=== PATIENT | female | born 1960 ===

== ENCOUNTER 2020-12-09 16:19 | Inpatient (IN) | payer OTHER ==
[~2020-12-09] VITALS: Ht 157.5 cm; Wt 72.0 kg
--- NOTE | 2020-12-09 17:47 | PHYS DOC ---
Past Medical History Past Surgical History: Oophorectomy, Tonsillectomy, Other Additional Past Surgical Histo: hemorrhoid Smoking Status: Current Every Day Smoker Alcohol Use: None General Adult EDM: Chief Complaint: LOWER EXTREMITY SWELLING HPI: HPI: Patient is a 60-year-old female presents to the emergency department reporting h er primary care physician Dr. Michael recommended she come straight to the emergency department from his office. Patient has complained of increased shortness of breath and cough for the past 3 weeks noticing bilateral lower extremity swelling for the past 2-1/2 weeks. Patient reports being a cigarette smoker since she was 15 years old, occasional alcohol, denies illicit drug use, patient denies chest pain, nausea, vomiting, diarrhea, diaphoretic episodes, dizziness, syncopal or near syncopal episodes. Patient reports receiving the COVID-19 virus vaccine series. Patient denies other physical complaints or physical concerns. Review of Systems: Review of Systems: 14 body systems of review of systems have been reviewed. See HPI for pertinent positives and negative responses, otherwise all other systems are negative, nonpertinent or noncontributory. Constitutional: Negative except as outlined in HPI above. Skin: Negative except as outlined in HPI above. Eyes: Negative except as outlined in HPI above. HENT: Negative except as outlined in HPI above. Respiratory: Negative except as outlined in HPI above. Cardiovascular: Negative except as outlined in HPI above. GI: Negative except as outlined in HPI above. : Negative except as outlined in HPI above. Musculoskeletal: Negative except as outlined in HPI above. Integument: Negative except as outlined in HPI above. Neurologic: Negative except as outlined in HPI above. Endocrine: Negative except as outlined in HPI above. Lymphatic: Negative except as outlined in HPI above. Psychiatric: Negative except as outlined in HPI above. Heart Score: C/O Chest Pain: No Risk Factors: Risk Factors: DM, Current or recent (<one month) smoker, HTN, HLP, family history of CAD, obesity. Risk Scores: Score 0 - 3: 2.5% MACE over next 6 weeks - Discharge Home Score 4 - 6: 20.3% MACE over next 6 weeks - Admit for Clinical Observation Score 7 - 10: 72.7% MACE over next 6 weeks - Early Invasive Strategies Allergies: Allergies: Allergies Coded Allergies Type Severity Reaction Last Updated Verified No Known Drug Allergies 12/09/20 No Physical Exam: PE: Constitutional: Well developed, well nourished, no acute distress, non-toxic appearance. 60-year-old female in no apparent distress. HENT: Normocephalic, atraumatic. Eyes: Conjunctiva normal, no discharge. Neck: Normal range of motion, no stridor. Bilateral positive JVD. Cardiovascular: No cyanosis appreciated, distal cap refill less than 2 seconds. Rapid heart rate to auscultation, Lungs & Thorax: Patient is in no respiratory distress, no audible adventitious lung sounds appreciated. Diminished lung sounds at bases, otherwise no adventitious lung sounds consultation. Abdomen: Nontender, no abnormalities noted. Skin: Warm, dry, no erythema, no rash. Back: No tenderness, no deformities. Extremities: No tenderness, no cyanosis, no clubbing, ROM intact, bilateral lower extremity 3+ pitting edema extending from just below calf to feet, 2+ dorsalis pedis/posterior tibial pulse. Distal cap refill less than 2 seconds. Neurologic: Alert and oriented X 3, normal motor function, normal sensory function, no focal deficits noted. Psychologic: Affect normal, judgement normal, mood normal. Current Patient Data: Labs: Laboratory Tests Test 12/09/20 17:22 12/09/20 18:28 White Blood Count 6.2 x10^3/uL Red Blood Count 5.36 x10^6/uL Hemoglobin 11.4 g/dL Hematocrit 35.4 % Mean Corpuscular Volume 66 fL Mean Corpuscular Hemoglobin 21 pg Mean Corpuscular Hemoglobin Concent 32 g/dL Red Cell Distribution Width 14.8 % Platelet Count 374 x10^3/uL Neutrophils (%) (Auto) 48 % Lymphocytes (%) (Auto) 40 % Monocytes (%) (Auto) 10 % Eosinophils (%) (Auto) 1 % Basophils (%) (Auto) 1 % Neutrophils # (Auto) 3.0 x10^3/uL Lymphocytes # (Auto) 2.5 x10^3/uL Monocytes # (Auto) 0.6 x10^3/uL Eosinophils # (Auto) 0.1 x10^3/uL Basophils # (Auto) 0.0 x10^3/uL Platelet Estimate Adequate Polychromasia Slight Hypochromasia Marked Microcytosis Marked Target Cells Mod Ovalocytes Mod Sodium Level 144 mmol/L Potassium Level 3.2 mmol/L Chloride Level 105 mmol/L Carbon Dioxide Level 30 mmol/L Anion Gap 9 Blood Urea Nitrogen 15 mg/dL Creatinine 0.5 mg/dL Estimated GFR (Cockcroft-Gault) 125.4 BUN/Creatinine Ratio 30 Glucose Level 121 mg/dL Calcium Level 8.8 mg/dL Total Bilirubin 1.1 mg/dL Aspartate Amino Transf (AST/SGOT) 26 U/L Alanine Aminotransferase (ALT/SGPT) 32 U/L Alkaline Phosphatase 124 U/L Creatine Kinase 65 U/L Creatine Kinase MB (Mass) 1.2 ng/mL Creatine Kinase MB Relative Index % Troponin I Quantitative < 0.017 ng/mL C-Reactive Protein, Quantitative 6.2 mg/L VF-[id number]-T-Type Natriuretic Peptide 2600 pg/mL Total Protein 7.0 g/dL Albumin 3.5 g/dL Albumin/Globulin Ratio 1.0 Urine Collection Type Unknown Urine Color Yellow Urine Clarity Clear Urine pH 7.5 Urine Specific [place] <=1.005 Urine Protein Negative mg/dL Urine Glucose (UA) Negative mg/dL Urine Ketones (Stick) Negative mg/dL Urine Blood Negative Urine Nitrite Negative Urine Bilirubin Negative Urine Urobilinogen Dipstick 0.2 mg/dL Urine Leukocyte Esterase Trace Urine RBC 0 /HPF Urine WBC 1-4 /HPF Urine Squamous Epithelial Cells Mod /LPF Urine Amorphous Sediment Present /HPF Urine Bacteria 0 /HPF Current Medications Medications (Trade) Dose Ordered Sig/Joey Route PRN Reason Start Time Stop Time Status Last Admin Dose Admin Diltiazem HCl (Cardizem Iv Push) 10 mg 1X ONCE IVP 12/09/20 18:00 12/09/20 18:01 DC 12/09/20 18:32 Albuterol/ Ipratropium (Duoneb) 3 ml 1X ONCE NEB 12/09/20 18:00 12/09/20 18:01 DC 12/09/20 18:13 Furosemide (Lasix) 40 mg 1X ONCE IVP 12/09/20 18:45 12/09/20 18:46 DC 12/09/20 18:32 Vital Signs: Vital Signs Date Time Temp Pulse Resp B/P (MAP) Pulse Ox O2 Delivery O2 Flow Rate FiO2 12/09/20 17:10 98.9 145 18 170/85 (113) 98 Room Air 98.9 EKG: EKG: EKG performed at 1726 by ED nursing staff shows a tachycardia with left axis deviation heart rate 141 bpm, no discernible P waves appreciated, QTc interval 0.462, no STEMI appreciated, no acute ischemia, no ACS appreciated, EKG interpreted by ED attending physician Dr. Soni. Radiology/Procedures: Radiology/Procedures: PATIENT: ADALBERTO ABBOTT ACCOUNT: [id number] : 1960 LOCATION: ER AGE: 60 SEX: F EXAM STATUS: REG ER ORD. PHYSICIAN: DEVENDRA HERRERA APRN REASON: Heart palpitations PROCEDURE: CHEST AP ONLY EXAM: AP View of the chest DATE: 12/09/2020 5:44 PM INDICATION: Reason: Heart palpitations / Spl. Instructions: / History: COMPARISON: No Prior FINDINGS/ IMPRESSION: Heart is not enlarged. Aorta is tortuous. Bilateral perihilar and lung base airspace opacities likely consolidative process such as pneumonia although pulmonary edema could also have this appearance. Small right pleural effusion. No pneumothorax. Electronically signed by: Joseph Mackay MD (12/09/2020 6:00 PM) MAKI Course & Med Decision Making: Course & Med Decision Making Pertinent Labs and Imaging studies reviewed. (See chart for details) 60-year-old female, vital signs reviewed, presents emergency department concerning increased shortness of breath with lower extremity swelling for the past 3 weeks. Physical examination concerning for congestive heart failure, will order cardiorespiratory work-up. EKG tachycardic no discernible P waves unable to determine sinus versus atrial fibrillation versus other ectopy, will order 10 mg Cardizem to assist in decreasing heart rate, repeat EKG. Patient's potassium 3.2, will give 80 of potassium p.o. supplement related to giving 40 mg IV Lasix for pulmonary edema/ingestive heart failure. Discussed findings with patient, recommended admission to the hospital for cardiology consult and treatment of pulmonary edema/CHF symptoms, patient is amenable to admission. Verbally discussed patient case and ED work-up with inpatient management physician Dr. Redd who agrees patient's case warrants admission to the telemetry unit. Consult cardiology, Dr. Redd recommended 10 mg IV metoprolol to assist in reducing heart rate. Patient remains hemodynamically stable, patient's blood pressure is 170/80 at admission time, heart rate remains [address] Redd has assumed patient care at this time. Patient awaiting bed assignment from [facility] [employer]. Juvencio Disclaimer: Juvencio Disclaimer: This electronic medical record was generated, in whole or in part, using a voice recognition dictation system. Departure Departure Impression: Primary Impression: Congestive heart failure Qualified Codes: I50.9 - Heart failure, unspecified Disposition: ADMITTED INPATIENT Admitting Physician: BENITEZ (Admit to telemetry unit to Dr. Redd, cardiology consulted.) Condition: GUARDED Referrals: Santo RODRIGUEZ MD (PCP) DEVENDRA HERRERA APRN Dec 09, 2020 17:47
[2020-12-09 17:58] LABS: BASO % 1 % (0-3); EOS # 0.1 x10^3/uL (0.0-0.7); EOS % 1 % (0-3); HEMATOCRIT 35.4 % (36.0-47.0); HEMOGLOBIN 11.4 g/dL (12.0-15.5); LYMPH # 2.5 x10^3/uL (1.0-4.8); LYMPH % 40 % (24-48); MEAN CORPUSCULAR HEMOGLOBIN 21 pg (25-35); MEAN CORPUSCULAR HGB CONC 32 g/dL (31-37); MEAN CORPUSCULAR VOLUME 66 fL (79-100); MONO # 0.6 x10^3/uL (0.0-1.1); MONO % 10 % (0-9); NEUT % 48 % (31-73); PLATELET COUNT 374 x10^3/uL (140-400); RED BLOOD COUNT 5.36 x10^6/uL (3.50-5.40); RED CELL DISTRIBUTION WIDTH 14.8 % (11.5-14.5); WHITE BLOOD COUNT 6.2 x10^3/uL (4.0-11.0)
[2020-12-09] MEDS ORDERED: IPRATRPIUM/ALBUTEROL 0.5/2.5MG 3 ML NEBU. NEB ONE (18:00)
--- NOTE | 2020-12-09 18:02 | RAD ---
EXAM: AP View of the chest DATE: 12/09/2020 5:44 PM INDICATION: Reason: Heart palpitations / Spl. Instructions: / History: COMPARISON: No Prior FINDINGS/ IMPRESSION: Heart is not enlarged. Aorta is tortuous. Bilateral perihilar and lung base airspace opacities likely consolidative process such as pneumonia although pulmonary edema could also have this appearance. Sm all right pleural effusion. No pneumothorax. Electronically signed by: Joseph Mackay MD (12/09/2020 6:00 PM) MAKI
[2020-12-09 18:18] LABS: CALCIUM 8.8 mg/dL (8.5-10.1); CREATININE 0.5 mg/dL (0.6-1.0); GFR 125.4; POTASSIUM 3.2 mmol/L (3.5-5.1)
[2020-12-09 18:36] LABS: ALBUMIN 3.5 g/dL (3.4-5.0); C-REACTIVE PROTEIN 6.2 mg/L (0-3.3); TOTAL BILIRUBIN 1.1 mg/dL (0.2-1.0)
[2020-12-09 18:38] LABS: BILIRUBIN,URINE NEGATIVE (NEG); CLARITY,URINE CLEAR; COLOR,URINE YELLOW; NITRITE,URINE NEGATIVE (NEG); PH,URINE 7.5 (<5.0-8.0); PROTEIN,URINE NEGATIVE (NEG-TRACE); UROBILINOGEN,URINE 0.2 mg/dL (0.2 mg/dL)
[2020-12-09] MEDS ORDERED: FUROSEMIDE 40 MG/4 ML VIAL. IVP ONE (18:45)
[2020-12-09 18:46] LABS: CREATINE KINASE 65 U/L (26-192)
[2020-12-09 18:50] LABS: AMORPHOUS SEDIMENT,UR PRESENT /HPF
[2020-12-09 18:51] LABS: BACTERIA,URINE 0 /HPF (0-FEW); RBC,URINE 0 /HPF (0-2)
[2020-12-09] MEDS ORDERED: METOPROLOL IV PUSH 5 MG/5 ML VIAL. IVP ONE (19:00)
[2020-12-09 19:01] LABS: HYPOCHROMIA MARKED; MICROCYTOSIS MARKED; OVALOCYTES MOD; PLT ESTIMATE ADEQUATE (ADEQUATE); POLYCHROMASIA SLIGHT; TARGET CELLS MOD
[2020-12-09] MEDS: POTASSIUM CHLORIDE 20 MEQ TABLET.ER. PO SCH ×2 (19:27→21:13)
[2020-12-09] MEDS: IPRATRPIUM/ALBUTEROL 0.5/2.5MG 3 ML NEBU. NEB SCH (20:00)
[2020-12-09] MEDS ORDERED: ZOLPIDEM 5 MG TABLET. PO PRN (20:30)
[2020-12-09] MEDS ORDERED: DOCUSATE SODIUM 100 MG CAPSULE. PO PRN (20:30)
[2020-12-09] MEDS ORDERED: SENNOSIDES 8.6 MG TABLET PO PRN (20:30)
[2020-12-09] MEDS ORDERED: PROCHLORPERAZINE 10 MG/2 ML VIAL. IV PRN (20:30)
[2020-12-09] MEDS ORDERED: LORazepam 0.5 MG TABLET PO PRN (20:30)
[2020-12-09] MEDS ORDERED: DEXTROSE 50% 25 GM / 50ML DISP.SYRIN. IV PRN (20:30)
[2020-12-09] MEDS ORDERED: ACETAMINOPHEN 325 MG TABLET. PO PRN (20:30)
[2020-12-09] MEDS ORDERED: ONDANSETRON PF 4 MG/2 ML VIAL. IVP PRN (20:30)
[2020-12-09 20:38] VITALS: BP 159/97
--- NOTE | 2020-12-09 20:39 | PDOC1 ---
History and Physical Date of Service: DOS: DATE: 12/09/20 TIME: 20:33 Chief Complaint: Chief Complain: Shortness of breath and lower extremity swelling History of Present Illness: HPI: History obtained from discussion with the ED physician and chart review: 60-year-old female presents to the emergency department reporting her primary care physician Dr. Michael recommended she come straight to the emergency department from his office. Patient has complained of increased shortness of breath and cough for the past 3 weeks noticing bilateral lower extremity swelling for the past 2-1/2 weeks. Patient reports being a cigarette smoker since she was 15 years old, occasional alcohol, denies illicit drug use, patient denies chest pain, nausea, vomiting, diarrhea, diaphoretic episodes, dizziness, syncopal or near syncopal episodes. Patient reports receiving the COVID-19 virus vaccine series. Patient denies other physical complaints or physical concerns. Patient seen and evaluated in the ED found to have heart rate in the 150s. EKG was evaluated what appears to quite evaluate A. fib with RVR or AVNRT. Will attempt metoprolol dose and if unsuccessful started on IV diltiazem drip. Past Medical/Surgical History: PMH/PSH: Past Surgical History: Oophorectomy, Tonsillectomy, hemorrhoidectomy Allergies: Allergies: Coded Allergies: No Known Drug Allergies (Unverified , 12/09/20) Family History: Family History: Reviewed with no relevant findings Social History: Social History: Smoking Status: Current Every Day Smoker about 1 pack/day for 40 years Alcohol Use: None Current Medications: Current Medications Current Medications Diltiazem HCl (Cardizem Iv Push) 10 mg 1X ONCE IVP Last administered on 12/09/20at 18:32; Start 12/09/20 at 18:00; Stop 12/09/20 at 18:01; Status DC Albuterol/ Ipratropium (Duoneb) 3 ml 1X ONCE NEB Last administered on 12/09/20at 18:13; Start 12/09/20 at 18:00; Stop 12/09/20 at 18:01; Status DC Furosemide (Lasix) 40 mg 1X ONCE IVP Last administered on 12/09/20at 18:32; Start 12/09/20 at 18:45; Stop 12/09/20 at 18:46; Status DC Metoprolol Tartrate (Lopressor Vial) 10 mg 1X ONCE IVP Last administered on 12/09/20at 19:28; Start 12/09/20 at 19:00; Stop 12/09/20 at 19:01; Status DC Potassium Chloride (Klor-Con) 40 meq Q1H PO Last administered on 12/09/20at 19:27; Start 12/09/20 at 19:00; Stop 12/09/20 at 20:01; Status DC ROS: Review of Systems Review of System REVIEW OF SYSTEMS: GENERAL: Denies weakness SKIN: No bruising, hair changes or rashes. EYES: No blurred, double or loss of vision. NOSE AND THROAT: No history of nosebleeds, hoarseness or sore throat. HEART: No history of palpitations, chest pain or shortness of breath on exertion. LUNGS: Positive shortness of breath GASTROINTESTINAL: Denies changes in appetite, nausea, vomiting, diarrhea or constipation. GENITOURINARY: No history of frequency, urgency, hesitancy or nocturia. NEUROLOGIC: Denies history of numbness, tingling, or tremor. PSYCHIATRIC: No history of panic, anxiety or depression. ENDOCRINE: No history of heat or cold intolerance, polyuria or polydipsia. EXTREMITIES: Positive lower extremity swelling Physical Exam: Vital Signs: Vital Signs Date Time Temp Pulse Resp B/P (MAP) Pulse Ox O2 Delivery O2 Flow Rate FiO2 12/09/20 19:28 154 204/87 12/09/20 18:14 97 Room Air 12/09/20 17:10 98.9 18 98.9 Physcial Exam: General: Well developed, well nourished, no acute distress, well appearing HEENT: Pupils equally round and reactive to light, EOMI, no discharge, normal conjunctiva Neck: Supple, no nuchal rigidity, no JVD, trachea midline, no tenderness Cardiac: RRR, no murmurs, no gallops, no rubs Chest/Lungs: Diminished bilaterally to auscultation Abdomen: soft, non-distended, no guarding, no peritoneal signs, non-tender Back: No tenderness Extremities: +1 pedal edema bilaterally, pulses intact, non-tender,capillary refill <3 sec bilateral upper and lower extremities, Neuro: Alert and oriented x 4, no focal deficits, normal speech Labs: Labs: Laboratory Tests Test 12/09/20 17:22 10/18/21 18:28 White Blood Count 6.2 x10^3/uL (4.0-11.0) Red Blood Count 5.36 x10^6/uL (3.50-5.40) Hemoglobin 11.4 g/dL (12.0-15.5) Hematocrit 35.4 % (36.0-47.0) Mean Corpuscular Volume 66 fL (79-100) Mean Corpuscular Hemoglobin 21 pg (25-35) Mean Corpuscular Hemoglobin Concent 32 g/dL (31-37) Red Cell Distribution Width 14.8 % (11.5-14.5) Platelet Count 374 x10^3/uL (140-400) Neutrophils (%) (Auto) 48 % (31-73) Lymphocytes (%) (Auto) 40 % (24-48) Monocytes (%) (Auto) 10 % (0-9) Eosinophils (%) (Auto) 1 % (0-3) Basophils (%) (Auto) 1 % (0-3) Neutrophils # (Auto) 3.0 x10^3/uL (1.8-7.7) Lymphocytes # (Auto) 2.5 x10^3/uL (1.0-4.8) Monocytes # (Auto) 0.6 x10^3/uL (0.0-1.1) Eosinophils # (Auto) 0.1 x10^3/uL (0.0-0.7) Basophils # (Auto) 0.0 x10^3/uL (0.0-0.2) Platelet Estimate Adequate (ADEQUATE) Polychromasia Slight Hypochromasia Marked Microcytosis Marked Target Cells Mod Ovalocytes Mod Erythrocyte Sedimentation Rate 9 (0-25) Sodium Level 144 mmol/L (136-145) Potassium Level 3.2 mmol/L (3.5-5.1) Chloride Level 105 mmol/L (98-107) Carbon Dioxide Level 30 mmol/L (21-32) Anion Gap 9 (6-14) Blood Urea Nitrogen 15 mg/dL (7-20) Creatinine 0.5 mg/dL (0.6-1.0) Estimated GFR (Cockcroft-Gault) 125.4 BUN/Creatinine Ratio 30 (6-20) Glucose Level 121 mg/dL (70-99) Calcium Level 8.8 mg/dL (8.5-10.1) Total Bilirubin 1.1 mg/dL (0.2-1.0) Aspartate Amino Transf (AST/SGOT) 26 U/L (15-37) Alanine Aminotransferase (ALT/SGPT) 32 U/L (14-59) Alkaline Phosphatase 124 U/L (46-116) Creatine Kinase 65 U/L (26-192) Creatine Kinase MB (Mass) 1.2 ng/mL (0.0-3.6) Creatine Kinase MB Relative Index % (0-4) Troponin I Quantitative < 0.017 ng/mL (0.000-0.055) C-Reactive Protein, Quantitative 6.2 mg/L (0-3.3) KG-Crg-T-Type Natriuretic Peptide 2600 pg/mL (0-124) Total Protein 7.0 g/dL (6.4-8.2) Albumin 3.5 g/dL (3.4-5.0) Albumin/Globulin Ratio 1.0 (1.0-1.7) Urine Collection Type Unknown Urine Color Yellow Urine Clarity Clear Urine pH 7.5 (<5.0-8.0) Urine Specific [place] <=1.005 (1.000-1.030) Urine Protein Negative mg/dL (NEG-TRACE) Urine Glucose (UA) Negative mg/dL (NEG) Urine Ketones (Stick) Negative mg/dL (NEG) Urine Blood Negative (NEG) Urine Nitrite Negative (NEG) Urine Bilirubin Negative (NEG) Urine Urobilinogen Dipstick 0.2 mg/dL (0.2 mg/dL) Urine Leukocyte Esterase Trace (NEG) Urine RBC 0 /HPF (0-2) Urine WBC 1-4 /HPF (0-4) Urine Squamous Epithelial Cells Mod /LPF Urine Amorphous Sediment Present /HPF Urine Bacteria 0 /HPF (0-FEW) Laboratory Tests Test 12/09/20 17:22 12/09/20 18:28 White Blood Count 6.2 x10^3/uL (4.0-11.0) Red Blood Count 5.36 x10^6/uL (3.50-5.40) Hemoglobin 11.4 g/dL (12.0-15.5) Hematocrit 35.4 % (36.0-47.0) Mean Corpuscular Volume 66 fL (79-100) Mean Corpuscular Hemoglobin 21 pg (25-35) Mean Corpuscular Hemoglobin Concent 32 g/dL (31-37) Red Cell Distribution Width 14.8 % (11.5-14.5) Platelet Count 374 x10^3/uL (140-400) Neutrophils (%) (Auto) 48 % (31-73) Lymphocytes (%) (Auto) 40 % (24-48) Monocytes (%) (Auto) 10 % (0-9) Eosinophils (%) (Auto) 1 % (0-3) Basophils (%) (Auto) 1 % (0-3) Neutrophils # (Auto) 3.0 x10^3/uL (1.8-7.7) Lymphocytes # (Auto) 2.5 x10^3/uL (1.0-4.8) Monocytes # (Auto) 0.6 x10^3/uL (0.0-1.1) Eosinophils # (Auto) 0.1 x10^3/uL (0.0-0.7) Basophils # (Auto) 0.0 x10^3/uL (0.0-0.2) Platelet Estimate Adequate (ADEQUATE) Polychromasia Slight Hypochromasia Marked Microcytosis Marked Target Cells Mod Ovalocytes Mod Erythrocyte Sedimentation Rate 9 (0-25) Sodium Level 144 mmol/L (136-145) Potassium Level 3.2 mmol/L (3.5-5.1) Chloride Level 105 mmol/L (98-107) Carbon Dioxide Level 30 mmol/L (21-32) Anion Gap 9 (6-14) Blood Urea Nitrogen 15 mg/dL (7-20) Creatinine 0.5 mg/dL (0.6-1.0) Estimated GFR (Cockcroft-Gault) 125.4 BUN/Creatinine Ratio 30 (6-20) Glucose Level 121 mg/dL (70-99) Calcium Level 8.8 mg/dL (8.5-10.1) Total Bilirubin 1.1 mg/dL (0.2-1.0) Aspartate Amino Transf (AST/SGOT) 26 U/L (15-37) Alanine Aminotransferase (ALT/SGPT) 32 U/L (14-59) Alkaline Phosphatase 124 U/L (46-116) Creatine Kinase 65 U/L (26-192) Creatine Kinase MB (Mass) 1.2 ng/mL (0.0-3.6) Creatine Kinase MB Relative Index % (0-4) Troponin I Quantitative < 0.017 ng/mL (0.000-0.055) C-Reactive Protein, Quantitative 6.2 mg/L (0-3.3) [place]-Dxx-Y-Type Natriuretic Peptide 2600 pg/mL (0-124) Total Protein 7.0 g/dL (6.4-8.2) Albumin 3.5 g/dL (3.4-5.0) Albumin/Globulin Ratio 1.0 (1.0-1.7) Urine Collection Type Unknown Urine Color Yellow Urine Clarity Clear Urine pH 7.5 (<5.0-8.0) Urine Specific [place] <=1.005 (1.000-1.030) Urine Protein Negative mg/dL (NEG-TRACE) Urine Glucose (UA) Negative mg/dL (NEG) Urine Ketones (Stick) Negative mg/dL (NEG) Urine Blood Negative (NEG) Urine Nitrite Negative (NEG) Urine Bilirubin Negative (NEG) Urine Urobilinogen Dipstick 0.2 mg/dL (0.2 mg/dL) Urine Leukocyte Esterase Trace (NEG) Urine RBC 0 /HPF (0-2) Urine WBC 1-4 /HPF (0-4) Urine Squamous Epithelial Cells Mod /LPF Urine Amorphous Sediment Present /HPF Urine Bacteria 0 /HPF (0-FEW) Images: Images PROCEDURE: CHEST AP ONLY EXAM: AP View of the chest DATE: 12/09/2020 5:44 PM INDICATION: Reason: Heart palpitations / Spl. Instructions: / History: COMPARISON: No Prior FINDINGS/ IMPRESSION: Heart is not enlarged. Aorta is tortuous. Bilateral perihilar and lung base airspace opacities likely consolidative process such as pneumonia although pulmonary edema could also have this appearance. Small right pleural effusion. No pneumothorax. Assessment/Plan Assessment/Plan Acute respiratory failure, with multiple etiologies Hypertensive urgency Tachyarrhythmia, concerning for A. fib RVR versus AVNRT Elevated BNP, possible related to chronic hypoxia versus acute CHF exacerbation Microcytic anemia, possibly due to CARLOS Mild hypokalemia Tobacco misuse Admit to hospitalist service for further management Continue telemetry monitoring Cardiology consult Start IV diltiazem drip to treat tachyarrhythmia and hypertension Inpatient systolic blood pressure goals of 140 to 180 and heart rate goal less than 90 Pending iron profile Lasix x1 now and daily as needed Strict I's and O monitor urine output IV electrolyte replacement as needed Lovenox for DVT prophylaxis Cardiac diet CODE STATUS full Discussed with RN and SW Disposition inpatient management as above DPOA: , Brodie Cary Justifications for Admission Other Justification Afib RVR SUZETTE JHONSON MD Dec 09, 2020 20:39
--- NOTE | 2020-12-09 20:45 | NUR ---
The patient, ADALBERTO ABBOTT, 60 y/o, F admitted by SUZETTE JOHNSON MD, was given written information regarding hospital policies, unit procedures and contact persons. Pt ambulated from cart to bed with standby assist, pt oriented to surroundings cardiac monitor applied to pt vs obtained and stable pt heart rate elevated at 120's-130's assessment completed poc explained pt denied pain at this time. Will resume care and continue to monitor pt. Will start Cardizem gtt call light placed in pt reach.
[2020-12-09 20:51] VITALS: BP 159/97
[2020-12-09] MEDS: ENOXAPARIN 40 MG/0.4 ML SYRINGE. SQ SCH (21:13)
[2020-12-09 22:50] VITALS: BP 126/70
[2020-12-09 22:51] VITALS: BP 126/70
[2020-12-09 23:51] VITALS: BP 127/62
[2020-12-10] VITALS (10 sets, daily range): BP systolic 132–188; BP diastolic 61–99
[2020-12-10] MEDS ORDERED: ASPI-630 PO (03:11)
[2020-12-10 05:03] LABS: BARBITURATES NEG (NEG); BENZODIAZEPINES NEG (NEG); CANNABINOIDS NEG (NEG); COCAINE NEG (NEG); METHADONE NEG (NEG); OPIATES NEG (NEG); PHENCYCLIDINE NEG (NEG)
[2020-12-10 05:04] LABS: AMPHETAMINE/METHAMPHETAMINE NEG (NEG)
[2020-12-10] MEDS: IPRATRPIUM/ALBUTEROL 0.5/2.5MG 3 ML NEBU. NEB SCH ×4 (08:20→18:57)
[2020-12-10] MEDS ORDERED: FLU VACC QUAD 21-22 (6MOS+) PF 0.5 ML SYRINGE. VAX IM ONE (09:00)
[2020-12-10 09:04] LABS: BASO % 1 % (0-3); EOS # 0.2 x10^3/uL (0.0-0.7); EOS % 3 % (0-3); HEMATOCRIT 33.1 % (36.0-47.0); HEMOGLOBIN 10.5 g/dL (12.0-15.5); LYMPH # 2.4 x10^3/uL (1.0-4.8); LYMPH % 43 % (24-48); MEAN CORPUSCULAR HEMOGLOBIN 21 pg (25-35); MEAN CORPUSCULAR HGB CONC 32 g/dL (31-37); MEAN CORPUSCULAR VOLUME 66 fL (79-100); MONO # 0.9 x10^3/uL (0.0-1.1); MONO % 15 % (0-9); NEUT # 2.1 x10^3/uL (1.8-7.7); NEUT % 38 % (31-73); PLATELET COUNT 361 x10^3/uL (140-400); RED CELL DISTRIBUTION WIDTH 14.6 % (11.5-14.5); WHITE BLOOD COUNT 5.6 x10^3/uL (4.0-11.0)
[2020-12-10 09:06] LABS: CREATININE 0.5 mg/dL (0.6-1.0); GFR 125.4; MAGNESIUM 1.8 mg/dL (1.8-2.4); PHOSPHORUS 4.8 mg/dL (2.6-4.7); POTASSIUM 3.4 mmol/L (3.5-5.1)
[2020-12-10 09:34] LABS: CHOLESTEROL/HDL RATIO 2.5
[2020-12-10 10:02] LABS: FREE T4 5.77 ng/dL (0.76-1.46)
--- NOTE | 2020-12-10 12:28 | PDOC ---
[employer] PROGRESS NOTE Date of Service DOS: DATE: 12/10/20 TIME: 12:18 Chief Complaint Chief Complaint Congestive Heart Failure Acute respiratory failure, with multiple etiologies Hypertensive urgency Tachyarrhythmia (A. fib RVR vs AVNRT) Elevated BNP Microcytic anemia, possibly due to CARLOS Mild hypokalemia Tobacco misuse History of Present Illness History of Present Illness 12/10 Patient seen and examined at bedside No acute overnight events Charts reviewed Discussed with RN and draw off worker Vitals/I&O Vitals/I&O: Vital Signs Date Time Temp Pulse Resp B/P (MAP) Pulse Ox O2 Delivery O2 Flow Rate FiO2 12/10/20 10:41 98.0 72 18 132/75 (94) 97 Room Air 98.0 I & O 12/09/20 12/09/20 12/10/20 15:00 23:00 07:00 Intake Total 460 ml Output Total 400 ml 600 ml Balance -400 ml -140 ml Physical Exam Physical Exam: General: Well developed, well nourished, comfortable, well appearing HEENT: Pupils equally round and reactive to light, EOMI, no discharge, normal conjunctiva Neck: Supple, no nuchal rigidity, no JVD, trachea midline, no tenderness Cardiac: RRR, no murmurs, no gallops, no rubs Chest/Lungs: Diminished bilaterally to auscultation Abdomen: soft, non-distended, no guarding, no peritoneal signs, non-tender Back: No tenderness Extremities: +1 pedal edema bilaterally, pulses intact, non-tender,capillary refill <3 sec bilateral upper and lower extremities, Neuro: AAOx 4, no focal deficits, normal speech General: Alert, Oriented X3, Cooperative, No acute distress Heart: Regular rate, Normal S1, Normal S2 Lungs: Clear, Other (Lung sounds diminshed BL) Abdomen: Normal bowel sounds, Soft, No tenderness Extremities: No clubbing, No cyanosis Skin: No rashes, No breakdown Labs Labs: Laboratory Tests Test 12/09/20 17:22 12/09/20 18:28 12/10/20 03:52 12/10/20 07:30 White Blood Count 6.2 x10^3/uL (4.0-11.0) 5.6 x10^3/uL (4.0-11.0) Red Blood Count 5.36 x10^6/uL (3.50-5.40) 5.00 x10^6/uL (3.50-5.40) Hemoglobin 11.4 g/dL (12.0-15.5) 10.5 g/dL (12.0-15.5) Hematocrit 35.4 % (36.0-47.0) 33.1 % (36.0-47.0) Mean Corpuscular Volume 66 fL (79-100) 66 fL (79-100) Mean Corpuscular Hemoglobin 21 pg (25-35) 21 pg (25-35) Mean Corpuscular Hemoglobin Concent 32 g/dL (31-37) 32 g/dL (31-37) Red Cell Distribution Width 14.8 % (11.5-14.5) 14.6 % (11.5-14.5) Platelet Count 374 x10^3/uL (140-400) 361 x10^3/uL (140-400) Neutrophils (%) (Auto) 48 % (31-73) 38 % (31-73) Lymphocytes (%) (Auto) 40 % (24-48) 43 % (24-48) Monocytes (%) (Auto) 10 % (0-9) 15 % (0-9) Eosinophils (%) (Auto) 1 % (0-3) 3 % (0-3) Basophils (%) (Auto) 1 % (0-3) 1 % (0-3) Neutrophils # (Auto) 3.0 x10^3/uL (1.8-7.7) 2.1 x10^3/uL (1.8-7.7) Lymphocytes # (Auto) 2.5 x10^3/uL (1.0-4.8) 2.4 x10^3/uL (1.0-4.8) Monocytes # (Auto) 0.6 x10^3/uL (0.0-1.1) 0.9 x10^3/uL (0.0-1.1) Eosinophils # (Auto) 0.1 x10^3/uL (0.0-0.7) 0.2 x10^3/uL (0.0-0.7) Basophils # (Auto) 0.0 x10^3/uL (0.0-0.2) 0.0 x10^3/uL (0.0-0.2) Platelet Estimate Adequate (ADEQUATE) Polychromasia Slight Hypochromasia Marked Microcytosis Marked Target Cells Mod Ovalocytes Mod Erythrocyte Sedimentation Rate 9 (0-25) Sodium Level 144 mmol/L (136-145) 145 mmol/L (136-145) Potassium Level 3.2 mmol/L (3.5-5.1) 3.4 mmol/L (3.5-5.1) Chloride Level 105 mmol/L (98-107) 106 mmol/L (98-107) Carbon Dioxide Level 30 mmol/L (21-32) 29 mmol/L (21-32) Anion Gap 9 (6-14) 10 (6-14) Blood Urea Nitrogen 15 mg/dL (7-20) 15 mg/dL (7-20) Creatinine 0.5 mg/dL (0.6-1.0) 0.5 mg/dL (0.6-1.0) Estimated GFR (Cockcroft-Gault) 125.4 125.4 BUN/Creatinine Ratio 30 (6-20) Glucose Level 121 mg/dL (70-99) 111 mg/dL (70-99) Calcium Level 8.8 mg/dL (8.5-10.1) 9.0 mg/dL (8.5-10.1) Iron Level 34 ug/dL (50-170) Total Iron Binding Capacity 238 ug/dL (250-450) Iron Saturation 14 % (15-34) Total Bilirubin 1.1 mg/dL (0.2-1.0) Aspartate Amino Transf (AST/SGOT) 26 U/L (15-37) Alanine Aminotransferase (ALT/SGPT) 32 U/L (14-59) Alkaline Phosphatase 124 U/L (46-116) Creatine Kinase 65 U/L (26-192) Creatine Kinase MB (Mass) 1.2 ng/mL (0.0-3.6) Creatine Kinase MB Relative Index % (0-4) Troponin I Quantitative < 0.017 ng/mL (0.000-0.055) < 0.017 ng/mL (0.000-0.055) C-Reactive Protein, Quantitative 6.2 mg/L (0-3.3) UG-Mzb-P-Type Natriuretic Peptide 2600 pg/mL (0-124) Total Protein 7.0 g/dL (6.4-8.2) Albumin 3.5 g/dL (3.4-5.0) Albumin/Globulin Ratio 1.0 (1.0-1.7) Thyroid Stimulating Hormone (TSH) < 0.007 uIU/mL (0.358-3.74) Urine Collection Type Unknown Urine Color Yellow Urine Clarity Clear Urine pH 7.5 (<5.0-8.0) Urine Specific [place] <=1.005 (1.000-1.030) Urine Protein Negative mg/dL (NEG-TRACE) Urine Glucose (UA) Negative mg/dL (NEG) Urine Ketones (Stick) Negative mg/dL (NEG) Urine Blood Negative (NEG) Urine Nitrite Negative (NEG) Urine Bilirubin Negative (NEG) Urine Urobilinogen Dipstick 0.2 mg/dL (0.2 mg/dL) Urine Leukocyte Esterase Trace (NEG) Urine RBC 0 /HPF (0-2) Urine WBC 1-4 /HPF (0-4) Urine Squamous Epithelial Cells Mod /LPF Urine Amorphous Sediment Present /HPF Urine Bacteria 0 /HPF (0-FEW) Urine Opiates Screen Neg (NEG) Urine Methadone Screen Neg (NEG) Urine Barbiturates Neg (NEG) Urine Phencyclidine Screen Neg (NEG) Urine Amphetamine/Methamphetamine Neg (NEG) Urine Benzodiazepines Screen Neg (NEG) Urine Cocaine Screen Neg (NEG) Urine Cannabinoids Screen Neg (NEG) Urine Ethyl Alcohol Neg (NEG) Phosphorus Level 4.8 mg/dL (2.6-4.7) Magnesium Level 1.8 mg/dL (1.8-2.4) Triglycerides Level 102 mg/dL (0-150) Cholesterol Level 115 mg/dL (0-200) LDL Cholesterol, Calculated 49 mg/dL (0-100) VLDL Cholesterol, Calculated 20 mg/dL (0-40) Non-HDL Cholesterol Calculated 69 mg/dL (0-129) HDL Cholesterol 46 mg/dL (40-60) Cholesterol/HDL Ratio 2.5 Free Thyroxine 5.77 ng/dL (0.76-1.46) Free Triiodothyronine (T3) pg/mL 16.34 pg/mL (2.18-3.98) Test 12/10/20 09:00 SARS-CoV-2 RNA (KOLE) Invalid (Negative) SARS-CoV-2 Antigen (Rapid) Negative (NEGATIVE) Review of Systems Review of Systems: ROS negative Assessment and Plan Assessmemt and Plan Problems Medical Problems: (1) Congestive heart failure Status: Acute Congestive Heart Failure Acute respiratory failure, with multiple etiologies Hypertensive urgency Tachyarrhythmia (A. fib RVR vs AVNRT) Elevated BNP Microcytic anemia, possibly due to CARLOS Mild hypokalemia Tobacco misuse Plan Continue Telemetry monitoring IV Lasix Cardiology input appreciated Awaiting Echo results DVT Prophylaxis Restart home meds PT/OT Disposition Pending Cardiac diet Full Code Comment Review of Relevant I have reviewed the following items stephanie (where applicable) has been applied. Medications: Current Medications Medications (Trade) Dose Ordered Sig/Joey Route PRN Reason Start Time Stop Time Status Last Admin Dose Admin Diltiazem HCl (Cardizem Iv Push) 10 mg 1X ONCE IVP 12/09/20 18:00 12/09/20 18:01 DC 12/09/20 18:32 Albuterol/ Ipratropium (Duoneb) 3 ml 1X ONCE NEB 12/09/20 18:00 12/09/20 18:01 DC 12/09/20 18:13 Furosemide (Lasix) 40 mg 1X ONCE IVP 12/09/20 18:45 12/09/20 18:46 DC 12/09/20 18:32 Metoprolol Tartrate (Lopressor Vial) 10 mg 1X ONCE IVP 12/09/20 19:00 12/09/20 19:01 DC 12/09/20 19:28 Potassium Chloride (Klor-Con) 40 meq Q1H PO 12/09/20 19:00 12/09/20 20:01 DC 12/09/20 21:13 Diltiazem HCl 125 mg/Sodium Chloride 125 ml @ 5 mls/hr CONT PRN IV PER PROTOCOL 12/09/20 21:00 12/10/20 08:28 Albuterol/ Ipratropium (Duoneb) 3 ml RTQID NEB 12/09/20 20:00 12/10/20 08:20 Enoxaparin Sodium (Lovenox 40mg Syringe) 40 mg Q24H SQ 12/09/20 21:00 12/09/20 21:13 Justifications for Admission Other Justification Afib RVR MICHAEL OROSCO K III DO Dec 10, 2020 12:28
[2020-12-10] MEDS ORDERED: METOPROLOL TART IMMED RELEASE 25 MG TABLET. PO ONE (13:00)
[2020-12-10] MEDS ORDERED: POTASSIUM CHLORIDE 20 MEQ TABLET.ER. PO ONE (13:00)
--- NOTE | 2020-12-10 13:10 | PDOC2 ---
FRANKO SOFIA [employer] 12/10/20 1310: CARDIAC CONSULT DATE OF CONSULT Date of Consult DATE: 12/10/20 TIME: 12:42 REASON FOR CONSULT Reason for Consult: new onset CHF REFERRING PHYSICIAN Referring Physician: Pamella SOURCE Source: Chart review, Patient HISTORY OF PRESENT ILLNESS HISTORY OF PRESENT ILLNESS This is a 60 yo female admitted for complains of shortness of breath and cough. She has been having increasing leg swelling in the last 3 weeks. She has been vaccinated for covid-19. Positive for orthopnea, PND. Denies any prior hx of thyroid disease. Positive for HERNÁNDEZ. No chest pain but has been having palpitations. No fever or chills and no syncope. No diarrhea. PAST MEDICAL HISTORY Past Medical History Hemmorhoids otherwise no pertinent history PAST SURGICAL HISTORY Past Surgical History Oophorectomy, Tonsillectomy, hemorrhoidectomy FAMILY HISTORY Family History: Adopted SOCIAL HISTORY Smoke: <1 pack per day ALCOHOL: occassional Drugs: None Lives: with Family CURRENT MEDICATIONS CURRENT MEDICATIONS Current Medications Medications (Trade) Dose Ordered Sig/Joey Route PRN Reason Start Time Stop Time Status Last Admin Dose Admin Diltiazem HCl (Cardizem Iv Push) 10 mg 1X ONCE IVP 12/09/20 18:00 12/09/20 18:01 DC 12/09/20 18:32 Albuterol/ Ipratropium (Duoneb) 3 ml 1X ONCE NEB 12/09/20 18:00 12/09/20 18:01 DC 12/09/20 18:13 Furosemide (Lasix) 40 mg 1X ONCE IVP 12/09/20 18:45 12/09/20 18:46 DC 12/09/20 18:32 Metoprolol Tartrate (Lopressor Vial) 10 mg 1X ONCE IVP 12/09/20 19:00 12/09/20 19:01 DC 12/09/20 19:28 Potassium Chloride (Klor-Con) 40 meq Q1H PO 12/09/20 19:00 12/09/20 20:01 DC 12/09/20 21:13 Diltiazem HCl 125 mg/Sodium Chloride 125 ml @ 5 mls/hr CONT PRN IV PER PROTOCOL 12/09/20 21:00 12/10/20 08:28 Albuterol/ Ipratropium (Duoneb) 3 ml RTQID NEB 12/09/20 20:00 12/10/20 08:20 Enoxaparin Sodium (Lovenox 40mg Syringe) 40 mg Q24H SQ 12/09/20 21:00 12/09/20 21:13 ALLERGIES ALLERGIES: Coded Allergies: No Known Drug Allergies (Unverified , 12/09/20) ROS Review of System 14 point ROS evaluated with pertinent positives noted per HPI PHYSICAL EXAM General: Alert, Oriented X3, Cooperative HEENT: Atraumatic, Mucous membr. moist/pink Lungs: Other (diminished) Heart: Regular rate (sinus tachycardia), Normal S1, Normal S2, No murmurs Abdomen: Soft, No tenderness Extremities: No cyanosis, No edema Skin: No breakdown, No significant lesion Neuro: Normal speech, Sensation intact Psych/Mental Status: Mental status NL, Mood NL MUSCULOSKELETAL: Osteoarthritic changes both hands VITALS/I&O VITALS/I&O: Vital Signs Date Time Temp Pulse Resp B/P (MAP) Pulse Ox O2 Delivery O2 Flow Rate FiO2 12/10/20 10:41 98.0 72 18 132/75 (94) 97 Room Air 98.0 I & O 12/09/20 12/09/20 12/10/20 15:00 23:00 07:00 Intake Total 460 ml Output Total 400 ml 600 ml Balance -400 ml -140 ml LABS Lab: Laboratory Tests Test 12/09/20 17:22 12/09/20 18:28 12/10/20 03:52 12/10/20 07:30 White Blood Count 6.2 x10^3/uL (4.0-11.0) 5.6 x10^3/uL (4.0-11.0) Red Blood Count 5.36 x10^6/uL (3.50-5.40) 5.00 x10^6/uL (3.50-5.40) Hemoglobin 11.4 g/dL (12.0-15.5) L 10.5 g/dL (12.0-15.5) L Hematocrit 35.4 % (36.0-47.0) L 33.1 % (36.0-47.0) L Mean Corpuscular Volume 66 fL (79-100) L 66 fL (79-100) L Mean Corpuscular Hemoglobin 21 pg (25-35) L 21 pg (25-35) L Mean Corpuscular Hemoglobin Concent 32 g/dL (31-37) 32 g/dL (31-37) Red Cell Distribution Width 14.8 % (11.5-14.5) H 14.6 % (11.5-14.5) H Platelet Count 374 x10^3/uL (140-400) 361 x10^3/uL (140-400) Neutrophils (%) (Auto) 48 % (31-73) 38 % (31-73) Lymphocytes (%) (Auto) 40 % (24-48) 43 % (24-48) Monocytes (%) (Auto) 10 % (0-9) H 15 % (0-9) H Eosinophils (%) (Auto) 1 % (0-3) 3 % (0-3) Basophils (%) (Auto) 1 % (0-3) 1 % (0-3) Neutrophils # (Auto) 3.0 x10^3/uL (1.8-7.7) 2.1 x10^3/uL (1.8-7.7) Lymphocytes # (Auto) 2.5 x10^3/uL (1.0-4.8) 2.4 x10^3/uL (1.0-4.8) Monocytes # (Auto) 0.6 x10^3/uL (0.0-1.1) 0.9 x10^3/uL (0.0-1.1) Eosinophils # (Auto) 0.1 x10^3/uL (0.0-0.7) 0.2 x10^3/uL (0.0-0.7) Basophils # (Auto) 0.0 x10^3/uL (0.0-0.2) 0.0 x10^3/uL (0.0-0.2) Platelet Estimate Adequate (ADEQUATE) Polychromasia Slight Hypochromasia Marked Microcytosis Marked Target Cells Mod Ovalocytes Mod Erythrocyte Sedimentation Rate 9 (0-25) Sodium Level 144 mmol/L (136-145) 145 mmol/L (136-145) Potassium Level 3.2 mmol/L (3.5-5.1) L 3.4 mmol/L (3.5-5.1) L Chloride Level 105 mmol/L (98-107) 106 mmol/L (98-107) Carbon Dioxide Level 30 mmol/L (21-32) 29 mmol/L (21-32) Anion Gap 9 (6-14) 10 (6-14) Blood Urea Nitrogen 15 mg/dL (7-20) 15 mg/dL (7-20) Creatinine 0.5 mg/dL (0.6-1.0) L 0.5 mg/dL (0.6-1.0) L Estimated GFR (Cockcroft-Gault) 125.4 125.4 BUN/Creatinine Ratio 30 (6-20) H Glucose Level 121 mg/dL (70-99) H 111 mg/dL (70-99) H Calcium Level 8.8 mg/dL (8.5-10.1) 9.0 mg/dL (8.5-10.1) Iron Level 34 ug/dL (50-170) L Total Iron Binding Capacity 238 ug/dL (250-450) L Iron Saturation 14 % (15-34) L Total Bilirubin 1.1 mg/dL (0.2-1.0) H Aspartate Amino Transferase (AST) 26 U/L (15-37) Alanine Aminotransferase (ALT) 32 U/L (14-59) Alkaline Phosphatase 124 U/L (46-116) H Creatine Kinase 65 U/L (26-192) Creatine Kinase MB (Mass) 1.2 ng/mL (0.0-3.6) Creatine Kinase MB Relative Index % (0-4) Troponin I Quantitative < 0.017 ng/mL (0.000-0.055) < 0.017 ng/mL (0.000-0.055) C-Reactive Protein, Quantitative 6.2 mg/L (0-3.3) H JQ-Cwk-H-Type Natriuretic Peptide 2600 pg/mL (0-124) H Total Protein 7.0 g/dL (6.4-8.2) Albumin 3.5 g/dL (3.4-5.0) Albumin/Globulin Ratio 1.0 (1.0-1.7) Thyroid Stimulating Hormone (TSH) < 0.007 uIU/mL (0.358-3.74) L Urine Collection Type Unknown Urine Color Yellow Urine Clarity Clear Urine pH 7.5 (<5.0-8.0) Urine Specific [place] <=1.005 (1.000-1.030) Urine Protein Negative mg/dL (NEG-TRACE) Urine Glucose (UA) Negative mg/dL (NEG) Urine Ketones (Stick) Negative mg/dL (NEG) Urine Blood Negative (NEG) Urine Nitrite Negative (NEG) Urine Bilirubin Negative (NEG) Urine Urobilinogen Dipstick 0.2 mg/dL (0.2 mg/dL) Urine Leukocyte Esterase Trace (NEG) Urine RBC 0 /HPF (0-2) Urine WBC 1-4 /HPF (0-4) Urine Squamous Epithelial Cells Mod /LPF Urine Amorphous Sediment Present /HPF Urine Bacteria 0 /HPF (0-FEW) Urine Opiates Screen Neg (NEG) Urine Methadone Screen Neg (NEG) Urine Barbiturates Neg (NEG) Urine Phencyclidine Screen Neg (NEG) Urine Amphetamine/Methamphetamine Neg (NEG) Urine Benzodiazepines Screen Neg (NEG) Urine Cocaine Screen Neg (NEG) Urine Cannabinoids Screen Neg (NEG) Urine Ethyl Alcohol Neg (NEG) Phosphorus Level 4.8 mg/dL (2.6-4.7) H Magnesium Level 1.8 mg/dL (1.8-2.4) Triglycerides Level 102 mg/dL (0-150) Cholesterol Level 115 mg/dL (0-200) LDL Cholesterol, Calculated 49 mg/dL (0-100) VLDL Cholesterol, Calculated 20 mg/dL (0-40) Non-HDL Cholesterol Calculated 69 mg/dL (0-129) HDL Cholesterol 46 mg/dL (40-60) Cholesterol/HDL Ratio 2.5 Free Thyroxine 5.77 ng/dL (0.76-1.46) H Free Triiodothyronine (T3) pg/mL 16.34 pg/mL (2.18-3.98) H Test 12/10/20 09:00 SARS-CoV-2 RNA (KOLE) Invalid (Negative) SARS-CoV-2 Antigen (Rapid) Negative (NEGATIVE) Laboratory Tests 12/09/20 17:22 12/10/20 07:30 Laboratory Tests 12/09/20 17:22 12/10/20 07:30 ASSESSMENT/PLAN ASSESSMENT/PLAN 1. Acute CHF with possible diastolic dysfunction likely precipitated by thyroid issues 2. Tachycardia: RBBB, no definitive AFIB but rather sinus tachycardia with PACs and PVCs. 3. Hyperthyroidism: new, per PCP 4. Tobaccoism and suspecting COPD 5. Fe def anemia: per PCP 6. Possible UTI: compains of hematuria 7. HTN urgency: better 8. Hypokalemia Recommendations 1. DC cardizem. Start metoprolol. No ASA. NO EKG noted in chart will repeat 2. TTE 3. Endocrinology referral 4. Lasix therapy, K replacement SNEHAL SHIELDS MD 12/10/202126: CARDIAC CONSULT ASSESSMENT/PLAN ASSESSMENT/PLAN Patient seen and examined. Agree with HOME [facility]ALTH LVN's assessment and plan. Acute on chr diastolic HF better compensated Tele showed sinus tach with bursts of AT and freq PAC's, no AF noted Agree with starting metoprolol 2D echo showed normal LVF We will consider ischemic evaluation as outpatient Treat hyperthyroidism per IM Thank you for your consultation FRANKO SOFIA APRN Dec 10, 2020 13:10 SNEHAL SHIELDS MD Dec 10, 2020 21:27
--- NOTE | 2020-12-10 14:42 | EKG ---
[facility] [address] [place] [address] Test Date: 2020-12-10 Test Time: 14:25:02 Pat Name: ADALBERTO ABBOTT Department: Room: [facility] Gender: F Varity[employer] Operator: AMBROSIO : 1960 Requested By: FRANKO SOFIA Order Number: [id number] Reading MD: Janusz To MD Measurements Intervals [place] Rate: 83 P: 27 [place]: 160 QRS: -65 QRSD: 110 T: 19 QT: 408 QTc: 486 Interpretive Statements SINUS RHYTHM RBBB LAFB NON-SPECIFIC ST/T CHANGES Electronically Signed On 12-11-2020 17:33:43 CDT by Janusz To MD
--- NOTE | 2020-12-10 14:53 | NUR ---
SS following for discharge planning. SS reviewed pt chart and discussed with pt RN. Pt is from home with spouse and is currently on room air. COVID19 negative on rapid. PCR Invalid. Pt on IV Lasix. PT/OT ordered. SS will continue to follow for discharge planning.
--- NOTE | 2020-12-10 17:12 | CARD ---
MR#: [id number] Date of Study: 12/10/2020 Ordering Physician: SUZETTE JOHNSON, Referring Physician: SUZETTE JOHNSON, Tech: Javier Aguilar [facility] APPROVED REPORT EXAM: Two-dimensional and M-mode echocardiogram with Doppler and color Doppler. Other Information Quality : AverageHR: 81bpm Rhythm : NSR INDICATION Atrial Fibrillation RISK FACTORS [place] 2D DIMENSIONS Left Atrium(2D)4.5 (1.6-4.0cm)IVSd0.9 (0.7-1.1cm) Aortic Root(2D)2.7 (2.0-3.7cm)LVDd4.8 (3.9-5.9cm) LVOT Diameter1.9 (1.8-2.4cm)PWd1.0 (0.7-1.1cm) LVDs2.9 (2.5-4.0cm)FS (%) 41.0 % SV78.3 ml Aortic Valve AoV Peak Henrry.193.7cm/sAoV VTI35.0cm AO Peak GR.15.0mmHgLVOT VTI 28.39cm AO Mean GR.8mmHg Mitral Valve MV E Djlbhowq382.4cm/sMV E Peak Gr.7mmHg MV DECEL [id number] A Biqbreau43.5cm/s MV E Mean Gr.3mmHgE/A Ratio1.4 TDI Lateral E' P. V9.72cm/sMedial E' P. V6.76cm/s E/Lateral E'13.5E/Medial E'19.4 Tricuspid Valve TR P. [id number]/sTR Peak Gr.31mmHg LEFT VENTRICLE The left ventricle is normal size. There is normal left ventricular wall thickness. The left ventricu lar systolic function is normal and the ejection fraction is within normal range. The Ejection Fracti on is 55-60%. There is normal LV segmental wall motion. Transmitral Doppler flow pattern is Grade II- pseudonormal filling dynamics. No left ventricle thrombus noted on this study. There is no ventricula r septal defect visualized. There is no left ventricular aneurysm. There is no mass noted in the left ventricle. RIGHT VENTRICLE The right ventricle is normal size. There is normal right ventricular wall thickness. The right ventr icular systolic function is normal. ATRIA The left atrium is mildly dilated. The right atrium size is normal. The interatrial septum is intact with no evidence for an atrial septal defect or patent foramen ovale as noted on 2-D or Doppler imagi ng. AORTIC VALVE The aortic valve is mildly sclerotic. Doppler and Color Flow revealed trace aortic regurgitation. The re is no significant aortic valvular stenosis. There is no aortic valvular vegetation. MITRAL VALVE The mitral valve is thickened but opens well. There is no evidence of mitral valve prolapse. There is no mitral valve stenosis. Doppler and Color-flow revealed mild mitral regurgitation. TRICUSPID VALVE The tricuspid valve is normal in structure and function. Doppler and Color Flow revealed trace tricus pid regurgitation. The PA pressure was estimated at 36 mmHg. There is no tricuspid valve prolapse or vegetation. There is no tricuspid valve stenosis. PULMONIC VALVE The pulmonary valve is normal in structure and function. Doppler and Color Flow revealed no pulmonic valvular regurgitation. There is no pulmonic valvular stenosis. GREAT VESSELS The aortic root is normal in size. The ascending aorta is normal in size. The pulmonary artery is nor mal. The IVC is normal in size and collapses >50% with inspiration. PERICARDIAL EFFUSION There is no pleural effusion. There is no evidence of significant pericardial effusion. Critical Notification Critical Value: No <Conclusion> The left ventricle is normal size. The left ventricular systolic function is normal and the ejection fraction is within normal range. The Ejection Fraction is 55-60%. Doppler and Color Flow revealed trace aortic regurgitation. There is no significant aortic valvular stenosis. Doppler and Color-flow revealed mild mitral regurgitation. Doppler and Color Flow revealed trace tricuspid regurgitation. The PA pressure was estimated at 36 mmHg. Signed by : Joaquin Hastings MD Electronically Approved : 12/10/2020 17:11:27
--- NOTE | 2020-12-10 19:40 | NUR ---
Assessment completed vss poc explained pt anxious in regards to poc will resume care and continue to monitor pt. Pt denied pain at this time will resume care and continue to monitor pt. Call light in reach.
[2020-12-10] MEDS: ENOXAPARIN 40 MG/0.4 ML SYRINGE. SQ SCH (21:27)
[2020-12-10] MEDS: METOPROLOL TART IMMED RELEASE 25 MG TABLET. PO SCH (21:27)
[2020-12-11 03:03] VITALS: BP 165/79
[2020-12-11 07:34] VITALS: BP 190/100
[2020-12-11] MEDS: IPRATRPIUM/ALBUTEROL 0.5/2.5MG 3 ML NEBU. NEB SCH ×4 (07:50→20:00)
[2020-12-11 08:19] LABS: BASO % 1 % (0-3); EOS # 0.1 x10^3/uL (0.0-0.7); EOS % 2 % (0-3); HEMATOCRIT 34.2 % (36.0-47.0); HEMOGLOBIN 10.7 g/dL (12.0-15.5); LYMPH # 2.4 x10^3/uL (1.0-4.8); LYMPH % 39 % (24-48); MEAN CORPUSCULAR HEMOGLOBIN 21 pg (25-35); MEAN CORPUSCULAR HGB CONC 31 g/dL (31-37); MEAN CORPUSCULAR VOLUME 67 fL (79-100); MONO # 0.8 x10^3/uL (0.0-1.1); MONO % 13 % (0-9); NEUT # 2.8 x10^3/uL (1.8-7.7); NEUT % 45 % (31-73); PLATELET COUNT 355 x10^3/uL (140-400); RED BLOOD COUNT 5.13 x10^6/uL (3.50-5.40); RED CELL DISTRIBUTION WIDTH 14.9 % (11.5-14.5); WHITE BLOOD COUNT 6.2 x10^3/uL (4.0-11.0)
--- NOTE | 2020-12-11 08:45 | PDOC ---
[facility] PROGRESS NOTE Date of Service DOS: DATE: 12/11/20 TIME: 08:37 Chief Complaint Chief Complaint Congestive Heart Failure Acute respiratory failure, with multiple etiologies Hypertensive urgency Tachyarrhythmia (A. 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 Patient seen and examined at bedside No acute overnight events Charts reviewed Discussed with RN and health service worker Vitals/I&O Vitals/I&O: Vital Signs Date Time Temp Pulse Resp B/P (MAP) Pulse Ox O2 Delivery O2 Flow Rate FiO2 12/11/20 07:50 94 Room Air 12/11/20 07:34 98.5 88 19 190/100 (130) 98.5 12/11/20 03:03 1.5 I & O 12/10/20 12/10/20 12/11/20 14:59 22:59 06:59 Intake Total 433 ml 850 ml 0 ml Output Total 250 ml 600 ml Balance 183 ml 250 ml 0 ml Physical Exam Physical Exam: General: Well developed, well nourished, comfortable, well appearing, pleasant HEENT: Pupils equally round and reactive to light, EOMI, no discharge, normal conjunctiva Neck: Supple, no nuchal rigidity, no JVD, trachea midline, no tenderness Cardiac: RRR, no murmurs, no gallops, no rubs Chest/Lungs: Diminished bilaterally to auscultation Abdomen: soft, non-distended, no guarding, no peritoneal signs, non-tender Back: No tenderness Extremities: +1 pedal edema bilaterally, pulses intact, non-tender,capillary refill <3 sec bilateral upper and lower extremities, Neuro: AAOx 4, no focal deficits, normal speech General: Alert, Oriented X3, Cooperative Heart: Regular rate (sinus tachycardia), Normal S1, Normal S2, No murmurs Lungs: Clear, Other (Lung sounds diminshed BL) Abdomen: Soft, No tenderness Extremities: No cyanosis, No edema Skin: No breakdown, No significant lesion Labs Labs: Laboratory Tests Test 12/10/20 09:00 10/20/21 07:25 Coronavirus (COVID-19)(PCR) Not detected (NOT DETECTD) SARS-CoV-2 RNA (KOLE) Invalid (Negative) SARS-CoV-2 Antigen (Rapid) Negative (NEGATIVE) White Blood Count 6.2 x10^3/uL (4.0-11.0) Red Blood Count 5.13 x10^6/uL (3.50-5.40) Hemoglobin 10.7 g/dL (12.0-15.5) Hematocrit 34.2 % (36.0-47.0) Mean Corpuscular Volume 67 fL (79-100) Mean Corpuscular Hemoglobin 21 pg (25-35) Mean Corpuscular Hemoglobin Concent 31 g/dL (31-37) Red Cell Distribution Width 14.9 % (11.5-14.5) Platelet Count 355 x10^3/uL (140-400) Neutrophils (%) (Auto) 45 % (31-73) Lymphocytes (%) (Auto) 39 % (24-48) Monocytes (%) (Auto) 13 % (0-9) Eosinophils (%) (Auto) 2 % (0-3) Basophils (%) (Auto) 1 % (0-3) Neutrophils # (Auto) 2.8 x10^3/uL (1.8-7.7) Lymphocytes # (Auto) 2.4 x10^3/uL (1.0-4.8) Monocytes # (Auto) 0.8 x10^3/uL (0.0-1.1) Eosinophils # (Auto) 0.1 x10^3/uL (0.0-0.7) Basophils # (Auto) 0.0 x10^3/uL (0.0-0.2) Review of Systems Review of Systems: ROS negative Assessment and Plan Assessmemt and Plan Problems Medical Problems: (1) Congestive heart failure Status: Acute Congestive Heart Failure Acute respiratory failure, with multiple etiologies Hypertensive urgency Tachyarrhythmia (A. fib RVR vs AVNRT) Hyperthyroidism Elevated BNP Microcytic anemia, possibly due to CARLOS Mild hypokalemia Tobacco misuse Plan Continue Telemetry monitoring IV Lasix Cardiology input appreciated Consider adjusting antihypertensives d/t elevated BP (190/100) Awaiting Echo results Started tapazole Serial cardiac enzymes DVT Prophylaxis Restart home meds PT/OT Disposition Pending Cardiac diet Full Code Comment Review of Relevant I have reviewed the following items stephanie (where applicable) has been applied. Medications: Current Medications Medications (Trade) Dose Ordered Sig/Joey Route PRN Reason Start Time Stop Time Status Last Admin Dose Admin Influenza Virus Vaccine Quadrival (Flulaval Quad Syringe) 0.5 ml ONCE ONCE VAX IM 12/10/20 09:00 12/10/20 09:01 DC 12/10/20 17:43 Metoprolol Tartrate (Lopressor) 25 mg BID PO 12/10/20 21:00 12/10/20 21:27 Metoprolol Tartrate (Lopressor) 25 mg 1X ONCE PO 12/10/20 13:00 12/10/20 13:01 DC 12/10/20 14:05 Potassium Chloride (Klor-Con) 40 meq 1X ONCE PO 12/10/20 13:00 12/10/20 13:02 DC 12/10/20 14:05 Justifications for Admission Other Justification Afib RVR MICHAEL OROSCO K III DO Dec 11, 2020 08:45
[2020-12-11] MEDS: methIMAzole 10 MG TABLET PO SCH ×3 (09:08→21:30)
[2020-12-11] MEDS: METOPROLOL TART IMMED RELEASE 25 MG TABLET. PO SCH ×2 (09:08→21:30)
[2020-12-11] MEDS: FUROSEMIDE 40 MG/4 ML VIAL. IVP SCH (09:09)
[2020-12-11 09:19] LABS: CALCIUM 9.4 mg/dL (8.5-10.1); CREATININE 0.6 mg/dL (0.6-1.0); GFR 101.6; MAGNESIUM 1.7 mg/dL (1.8-2.4); POTASSIUM 3.5 mmol/L (3.5-5.1)
[2020-12-11 11:14] VITALS: BP 143/83
--- NOTE | 2020-12-11 12:13 | PDOC ---
FRANKO SOFIA PEDIATRICIAN 12/11/20 1213: CARDIO Progress Notes Date and Time Date of Service 12/11/2020 Time of Evaluation 1150 Subjective Subjective: No Chest Pain, No shortness of breath, No Palpitations Vitals Vitals Vital Signs Date Time Temp Pulse Resp B/P (MAP) Pulse Ox O2 Delivery O2 Flow Rate FiO2 12/11/20 11:37 94 Room Air 12/11/20 11:14 98.3 110 19 143/83 (103) 98.3 12/11/20 03:03 1.5 Weight Weight [ ] Input and Output Intake and Output Intake and Output 12/11/20 07:00 Intake Total 1283 ml Output Total 850 ml Balance 433 ml Intake Oral 1210 ml IV Total 73 ml Output Urine Total 850 ml # Voids 1 Laboratory Labs Laboratory Tests Test 12/11/20 07:25 White Blood Count 6.2 x10^3/uL (4.0-11.0) Red Blood Count 5.13 x10^6/uL (3.50-5.40) Hemoglobin 10.7 g/dL (12.0-15.5) Hematocrit 34.2 % (36.0-47.0) Mean Corpuscular Volume 67 fL (79-100) Mean Corpuscular Hemoglobin 21 pg (25-35) Mean Corpuscular Hemoglobin Concent 31 g/dL (31-37) Red Cell Distribution Width 14.9 % (11.5-14.5) Platelet Count 355 x10^3/uL (140-400) Neutrophils (%) (Auto) 45 % (31-73) Lymphocytes (%) (Auto) 39 % (24-48) Monocytes (%) (Auto) 13 % (0-9) Eosinophils (%) (Auto) 2 % (0-3) Basophils (%) (Auto) 1 % (0-3) Neutrophils # (Auto) 2.8 x10^3/uL (1.8-7.7) Lymphocytes # (Auto) 2.4 x10^3/uL (1.0-4.8) Monocytes # (Auto) 0.8 x10^3/uL (0.0-1.1) Eosinophils # (Auto) 0.1 x10^3/uL (0.0-0.7) Basophils # (Auto) 0.0 x10^3/uL (0.0-0.2) Sodium Level 145 mmol/L (136-145) Potassium Level 3.5 mmol/L (3.5-5.1) Chloride Level 106 mmol/L (98-107) Carbon Dioxide Level 25 mmol/L (21-32) Anion Gap 14 (6-14) Blood Urea Nitrogen 18 mg/dL (7-20) Creatinine 0.6 mg/dL (0.6-1.0) Estimated GFR (Cockcroft-Gault) 101.6 Glucose Level 108 mg/dL (70-99) Calcium Level 9.4 mg/dL (8.5-10.1) Magnesium Level 1.7 mg/dL (1.8-2.4) Microbiology Micro Microbiology 12/09/20 Urine Culture - Final, Complete Physical Exam HEENT: Neck Supple W Full Motion Chest: Symmetric LUNGS: Other (diminished bases) Heart: other (irregular, PAT) Abdomen: Soft N/T Extremities: No Calf Tenderness Neurology: alert, oriented, follow commands Assessment Assessment 1. Acute CHF with diastolic dysfunction likely precipitated by thyroid issues. EF and WM nml per TTE 2. Tachycardia: RBBB, no definitive AFIB, PAT 3. Hyperthyroidism: new, per PCP, tapazole started 4. Tobaccoism and suspecting COPD 5. Fe def anemia: per PCP 6. Possible UTI: complains of hematuria per PCP 7. HTN urgency: better 8. Hypokalemia/hypomagnesemia Recommendations 1. Increase Metoprolol. No ASA. Repeat EKG 2. Endocrinology referral 3. Lasix therapy, K/Mg replacement Justicifation of Admission Dx: Justifications for Admission: Justification of Admission Dx: Yes SNEHAL SHIELDS MD 12/11/204: CARDIO Progress Notes Assessment Assessment Patient seen and examined. Agree with [employer]'s assessment and plan. Tele showed sinus tachy with freq PAC's - cont BB's 2D echo showed normal LVEF Chronic diast HF better compensated Plan ischemic eval as outpatient Plan event monitor recording as outpatient FRANKO SOFIA APRN Dec 11, 2020 12:13 SNEHAL SHIELDS MD Dec 11, 2020 21:34
[2020-12-11] MEDS ORDERED: METOPROLOL IV PUSH 5 MG/5 ML VIAL. IVP ONE ×2 (12:15→18:30)
[2020-12-11] MEDS ORDERED: POTASSIUM CHLORIDE 20 MEQ TABLET.ER. PO ONE (12:15)
--- NOTE | 2020-12-11 12:29 | EKG ---
[facility] [address] [place] [address] Test Date: 2020-12-11 Test Time: 12:25:36 Pat Name: ADALBERTO ABBOTT Department: Room: [facility] Gender: F Auto Servicer: TENZIN : 1960 Requested By: FRANKO SOFIA Order Number: [id number] Reading MD: Janusz To MD Measurements Intervals [place] Rate: 135 P: NC: QRS: -83 QRSD: 114 T: 36 QT: 326 QTc: 494 Interpretive Statements Atrial fibrillation with rapid ventricular response NON-SPECIFIC ST/T CHANGES PVC Electronically Signed On 12-11-2020 17:26:33 CDT by Janusz To MD
[2020-12-11] MEDS ORDERED: MAGNESIUM SULFATE 2GM 50 ML IV ONE (12:30)
[2020-12-11 14:23] VITALS: BP 123/86
--- NOTE | 2020-12-11 15:36 | NUR ---
SS following up with discharge planning. SS reviewed pt chart and discussed with pt RN. Pt is currently on room air. COVID19 negative. Cardiology following. Pt on IV Lasix. PT/OT ordered. SS will continue to follow for discharge planning.
[2020-12-11] MEDS ORDERED: DIGOXIN IV 500 MCG/2 ML AMPUL. IV ONE (18:30)
[2020-12-11 18:35] VITALS: BP 139/78
--- NOTE | 2020-12-11 19:55 | NUR ---
Assessment completed vss pt in st/ afib pt denied pain but c/o discomfort at iv site call light in reach will resume care and continue to monitor pt.
[2020-12-11] MEDS: ENOXAPARIN 40 MG/0.4 ML SYRINGE. SQ SCH (21:30)
[2020-12-11 22:36] VITALS: BP 150/107
[2020-12-12 02:30] VITALS: BP 165/99
[2020-12-12] MEDS: methIMAzole 10 MG TABLET PO SCH (05:52)
[2020-12-12] MEDS: IPRATRPIUM/ALBUTEROL 0.5/2.5MG 3 ML NEBU. NEB SCH ×2 (07:37→11:52)
[2020-12-12 07:55] VITALS: BP 139/89
[2020-12-12] MEDS ORDERED: DIGOXIN IV 500 MCG/2 ML AMPUL. IV ONE (08:00)
[2020-12-12] MEDS ORDERED: POTASSIUM CHLORIDE 20 MEQ TABLET.ER. PO SCH (08:00)
[2020-12-12 08:07] LABS: BASO % 0 % (0-3); EOS # 0.1 x10^3/uL (0.0-0.7); EOS % 1 % (0-3); HEMATOCRIT 34.4 % (36.0-47.0); HEMOGLOBIN 10.9 g/dL (12.0-15.5); LYMPH # 2.4 x10^3/uL (1.0-4.8); LYMPH % 31 % (24-48); MEAN CORPUSCULAR HEMOGLOBIN 21 pg (25-35); MEAN CORPUSCULAR HGB CONC 32 g/dL (31-37); MEAN CORPUSCULAR VOLUME 66 fL (79-100); MONO # 1.2 x10^3/uL (0.0-1.1); MONO % 16 % (0-9); NEUT % 51 % (31-73); PLATELET COUNT 343 x10^3/uL (140-400); RED BLOOD COUNT 5.21 x10^6/uL (3.50-5.40); RED CELL DISTRIBUTION WIDTH 14.9 % (11.5-14.5); WHITE BLOOD COUNT 7.9 x10^3/uL (4.0-11.0)
[2020-12-12 08:25] LABS: CALCIUM 8.9 mg/dL (8.5-10.1); CREATININE 0.5 mg/dL (0.6-1.0); GFR 125.4; MAGNESIUM 1.9 mg/dL (1.8-2.4); POTASSIUM 3.5 mmol/L (3.5-5.1)
[2020-12-12] MEDS: FUROSEMIDE 40 MG/4 ML VIAL. IVP SCH (09:00)
[2020-12-12] MEDS: METOPROLOL TART IMMED RELEASE 25 MG TABLET. PO SCH (09:00)
[2020-12-12 10:27] VITALS: BP 163/58
[2020-12-12] MEDS ORDERED: POTA20TA4 PO (11:08)
[2020-12-12] MEDS ORDERED: FURO-69 PO (11:08)
[2020-12-12] MEDS ORDERED: METO25TA4 PO (11:08)
[2020-12-12] MEDS ORDERED: DIGO125T3 PO (11:08)
[2020-12-12] MEDS ORDERED: METH-364 PO (11:08)
--- NOTE | 2020-12-12 11:09 | PDOC ---
[employer] PROGRESS NOTE Date of Service DOS: DATE: 12/12/20 TIME: 11:01 Chief Complaint Chief Complaint Congestive Heart Failure Acute respiratory failure, with multiple etiologies Hypertensive urgency Tachyarrhythmia (A. fib RVR vs AVNRT) Hyperthyroidism Elevated BNP Microcytic anemia, possibly due to CARLOS Mild hypokalemia Tobacco misuse History of Present Illness History of Present Illness 12/12 Patient seen and examined Charts reviewed No acute overnight events Patient received digoxin d/t elevated HR HR ~80-90s upon exam Discussed hyperthyroidism management and need for close follow up Discussed with RN and SW 12/11 Pt examined and seen at bedside Chart reviewed No acute overnight events noted Pt reports feeling overall improved but did have concerns over elevated blood pressure Discussed patient's hyperthyroidism DWRN and social work job titles 12/10 Patient seen and examined at bedside No acute overnight events Charts reviewed 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 Vitals/I&O Vitals/I&O: Vital Signs Date Time Temp Pulse Resp B/P (MAP) Pulse Ox O2 Delivery O2 Flow Rate FiO2 12/12/20 10:27 98.5 97 20 163/58 (93) 97 Room Air 98.5 12/12/20 08:00 1.5 I & O 12/11/20 12/11/20 12/12/20 14:59 22:59 06:59 Intake Total 1000 ml 1050 ml 0 ml Output Total 2100 ml 1500 ml Balance -1100 ml -450 ml 0 ml Physical Exam Physical Exam: General: Well developed, well nourished, comfortable, well appearing, pleasant HEENT: Pupils equally round and reactive to light, EOMI, no discharge, normal conjunctiva Neck: Supple, no nuchal rigidity, no JVD, trachea midline, no tenderness Cardiac: RRR, no murmurs, no gallops, no rubs Chest/Lungs: Diminished bilaterally to auscultation Abdomen: soft, non-distended, no guarding, no peritoneal signs, non-tender Back: No tenderness Extremities: +1 pedal edema bilaterally, pulses intact, non-tender,capillary refill <3 sec bilateral upper and lower extremities, Neuro: AAOx 4, no focal deficits, normal speech General: Alert, Oriented X3, Cooperative Heart: Regular rate (sinus tachycardia), Normal S1, Normal S2, No murmurs Lungs: Clear, Other (Lung sounds diminshed BL) Abdomen: Soft, No tenderness Extremities: No cyanosis, No edema Skin: No breakdown, No significant lesion Labs Labs: Laboratory Tests Test 12/12/20 07:00 White Blood Count 7.9 x10^3/uL (4.0-11.0) Red Blood Count 5.21 x10^6/uL (3.50-5.40) Hemoglobin 10.9 g/dL (12.0-15.5) Hematocrit 34.4 % (36.0-47.0) Mean Corpuscular Volume 66 fL (79-100) Mean Corpuscular Hemoglobin 21 pg (25-35) Mean Corpuscular Hemoglobin Concent 32 g/dL (31-37) Red Cell Distribution Width 14.9 % (11.5-14.5) Platelet Count 343 x10^3/uL (140-400) Neutrophils (%) (Auto) 51 % (31-73) Lymphocytes (%) (Auto) 31 % (24-48) Monocytes (%) (Auto) 16 % (0-9) Eosinophils (%) (Auto) 1 % (0-3) Basophils (%) (Auto) 0 % (0-3) Neutrophils # (Auto) 4.0 x10^3/uL (1.8-7.7) Lymphocytes # (Auto) 2.4 x10^3/uL (1.0-4.8) Monocytes # (Auto) 1.2 x10^3/uL (0.0-1.1) Eosinophils # (Auto) 0.1 x10^3/uL (0.0-0.7) Basophils # (Auto) 0.0 x10^3/uL (0.0-0.2) Sodium Level 141 mmol/L (136-145) Potassium Level 3.5 mmol/L (3.5-5.1) Chloride Level 105 mmol/L (98-107) Carbon Dioxide Level 25 mmol/L (21-32) Anion Gap 11 (6-14) Blood Urea Nitrogen 13 mg/dL (7-20) Creatinine 0.5 mg/dL (0.6-1.0) Estimated GFR (Cockcroft-Gault) 125.4 Glucose Level 113 mg/dL (70-99) Calcium Level 8.9 mg/dL (8.5-10.1) Magnesium Level 1.9 mg/dL (1.8-2.4) Review of Systems Review of Systems: ROS negative Assessment and Plan Assessmemt and Plan Problems Medical Problems: (1) Congestive heart failure Status: Acute Chronic Diastolic Heart Failure Acute respiratory failure, with multiple etiologies Hypertensive urgency Tachyarrhythmia (A. fib RVR vs AVNRT) Hyperthyroidism Elevated BNP Microcytic anemia, possibly due to CARLOS Mild hypokalemia Tobacco misuse Plan Discharge today or tomorrow if ok with cardiology Continue Telemetry monitoring IV Lasix Continue methimazole Serial cardiac enzymes DVT Prophylaxis Restarted home meds PT/OT Disposition: Probable discharge if ok with cardiology Cardiac diet Full Code Comment Review of Relevant I have reviewed the following items stephanie (where applicable) has been applied. Medications: Current Medications Medications (Trade) Dose Ordered Sig/Joey Route PRN Reason Start Time Stop Time Status Last Admin Dose Admin Metoprolol Tartrate (Lopressor) 50 mg BID PO 12/11/20 21:00 12/12/20 09:00 Metoprolol Tartrate (Lopressor Vial) 5 mg 1X ONCE IVP 12/11/20 12:15 12/11/20 12:16 DC 12/11/20 12:42 Potassium Chloride (Klor-Con) 20 meq [id number] PO 12/12/20 08:00 12/12/20 08:00 Potassium Chloride (Klor-Con) 20 meq 1X ONCE PO 12/11/20 12:15 12/11/20 12:22 DC 12/11/20 12:42 Magnesium Sulfate 50 ml @ 25 mls/hr 1X ONCE IV 12/11/20 12:30 12/11/20 14:29 DC 12/11/20 14:23 Digoxin (Lanoxin) 500 mcg 1X ONCE IV 12/11/20 18:30 12/11/20 18:31 DC 12/11/20 18:36 Metoprolol Tartrate (Lopressor Vial) 5 mg 1X ONCE IVP 12/11/20 18:30 12/11/20 18:31 DC 12/11/20 18:35 Digoxin (Lanoxin) 500 mcg 1X ONCE IV 12/12/20 08:00 12/12/20 08:01 DC 12/12/20 08:00 Justifications for Admission Other Justification Afib RVR MICHAEL OROSCO III DO Dec 12, 2020 11:09
--- NOTE | 2020-12-12 12:09 | PDOC ---
CARDIO Progress Notes Date and Time Date of Service 12/12/2020 Time of Evaluation 1150 Subjective Subjective: No Chest Pain, No shortness of breath, No Palpitations Vitals Vitals Vital Signs Date Time Temp Pulse Resp B/P (MAP) Pulse Ox O2 Delivery O2 Flow Rate FiO2 12/12/20 11:52 95 Room Air 12/12/20 10:27 98.5 97 20 163/58 (93) 98.5 12/12/20 08:00 1.5 Weight Weight [ ] Input and Output Intake and Output Intake and Output 12/12/20 07:00 Intake Total 2050 ml Output Total 3600 ml Balance -1550 ml Intake Oral 2000 ml IV Total 50 ml Output Urine Total 3600 ml Laboratory Labs Laboratory Tests Test 12/12/20 07:00 White Blood Count 7.9 x10^3/uL (4.0-11.0) Red Blood Count 5.21 x10^6/uL (3.50-5.40) Hemoglobin 10.9 g/dL (12.0-15.5) Hematocrit 34.4 % (36.0-47.0) Mean Corpuscular Volume 66 fL (79-100) Mean Corpuscular Hemoglobin 21 pg (25-35) Mean Corpuscular Hemoglobin Concent 32 g/dL (31-37) Red Cell Distribution Width 14.9 % (11.5-14.5) Platelet Count 343 x10^3/uL (140-400) Neutrophils (%) (Auto) 51 % (31-73) Lymphocytes (%) (Auto) 31 % (24-48) Monocytes (%) (Auto) 16 % (0-9) Eosinophils (%) (Auto) 1 % (0-3) Basophils (%) (Auto) 0 % (0-3) Neutrophils # (Auto) 4.0 x10^3/uL (1.8-7.7) Lymphocytes # (Auto) 2.4 x10^3/uL (1.0-4.8) Monocytes # (Auto) 1.2 x10^3/uL (0.0-1.1) Eosinophils # (Auto) 0.1 x10^3/uL (0.0-0.7) Basophils # (Auto) 0.0 x10^3/uL (0.0-0.2) Sodium Level 141 mmol/L (136-145) Potassium Level 3.5 mmol/L (3.5-5.1) Chloride Level 105 mmol/L (98-107) Carbon Dioxide Level 25 mmol/L (21-32) Anion Gap 11 (6-14) Blood Urea Nitrogen 13 mg/dL (7-20) Creatinine 0.5 mg/dL (0.6-1.0) Estimated GFR (Cockcroft-Gault) 125.4 Glucose Level 113 mg/dL (70-99) Calcium Level 8.9 mg/dL (8.5-10.1) Magnesium Level 1.9 mg/dL (1.8-2.4) Microbiology Micro Microbiology 12/09/20 Urine Culture - Final, Complete Physical Exam HEENT: Neck Supple W Full Motion Chest: Symmetric LUNGS: Other (diminished bases) Heart: other (SR with frequent PACs) Abdomen: Soft N/T Extremities: No Calf Tenderness Neurology: alert, oriented, follow commands Assessment Assessment 1. Acute CHF with diastolic dysfunction likely precipitated by thyroid issues. EF and WM nml per TTE 2. Tachycardia: RBBB, no definitive AFIB, PAT, rate is better 3. Hyperthyroidism: new, per PCP, tapazole started 4. Tobaccoism and suspecting COPD 5. Fe def anemia: per PCP 6. HTN urgency: better 7. Hypokalemia/hypomagnesemia: replaced Recommendations 1. Continue Metoprolol. No ASA 2. Endocrinology referral 3. Lasix therapy, K/Mg replacement 4. Follow up with Dr. Wooten on January 22 9:15AM Justicifation of Admission Dx: Justifications for Admission: Justification of Admission Dx: Yes FRANKO SOFIA PLISSE MACHINE OPERATOR Dec 12, 2020 12:09
--- NOTE | 2020-12-12 13:12 | NUR ---
SS following up with discharge planning. SS reviewed pt chart and discussed with pt RN. Pt is currently on room air. COVID19 negative. Cardiology following. PT/OT ordered. Discharge order on the chart for home with self care.
--- NOTE | 2020-12-13 09:06 | DS ---
DATE OF DISCHARGE: 12/12/2020 ADMISSION DIAGNOSES: Acute on chronic systolic and diastolic heart failure, hypertensive urgency, tachyarrhythmia. DISCHARGE DIAGNOSES: Resolving acute on chronic systolic and diastolic heart failure, new diagnosis of hyperthyroidism, tobacco abuse, possible chronic obstructive pulmonary disease, iron deficiency anemia, hypertension, resolving hypokalemia and resolving hypomagnesemia. CONSULTATIONS: Cardiology. PROCEDURES: None. HOSPITAL COURSE: The patient is a pleasant, middle-aged female who presented with acute on chronic systolic and diastolic heart failure. She was admitted. We diuresed her. There was some concern she could have AFib. Cardiology felt it was a tachybrady syndrome. She was also hyperthyroid with a TSH of less than 0.007. I started her on Tapazole 5 mg t.i.d. and over the next few days, her symptoms improved. Yesterday, I saw and examined her. She was doing well. I put orders in to discharge if okay with Cardiology. DISPOSITION: Home. ACTIVITY: As tolerated. DIET: Low sodium. MEDICATIONS: Tapazole 5 mg t.i.d. (I told her to please follow up closely with her primary care doctor within the next couple of weeks to readdress this medicine), digoxin 0.125 mg a day, Lasix 20 mg a day, metoprolol 50 mg b.i.d., potassium 20 mEq a day, and aspirin 81 mg daily. TOTAL TIME: [address]: Aries TID: [id number]
== END 2020-12-12 12:45 | disposition home or self-care (01) | DRG 291 ==
LOC: ER 16:19 → 6 SOUTH 20:05
PROVIDERS: ADMIT Internal Medicine; ATTEND Internal Medicine
DX: I11.0 Hypertensive heart disease with heart failure (principal); I50.43 Acute on chronic combined systolic (congestive) and diastolic (congestive) heart failure; J96.00 Acute respiratory failure, unspecified whether with hypoxia or hypercapnia; I48.91 Unspecified atrial fibrillation; D50.9 Iron deficiency anemia, unspecified; E05.90 Thyrotoxicosis, unspecified without thyrotoxic crisis or storm; E83.42 Hypomagnesemia; E87.6 Hypokalemia; F17.210 Nicotine dependence, cigarettes, uncomplicated; I16.0 Hypertensive urgency; I45.10 Unspecified right bundle-branch block; Z90.49 Acquired absence of other specified parts of digestive tract; I49.5 Sick sinus syndrome; Z20.822 Contact with and (suspected) exposure to COVID-19
CPT/HCPCS: 36415; 71045; 80048; 80053; 80061; 80307; 81001; 82553; 83540; 83550; 83735; 83880; 84100; 84439; 84443; 84481; 84484; 85025; 85651; 86140; 87086; 87426; 90471; 90686; 93005; 93306; 94640; 94760; 96374; 96375; J1160; J1650; J1940; J3475; J3490; U0003; U0005; 99285-25; G0378

== ENCOUNTER → 2021-02-18 | Outpatient (CLI) | payer OTHER ==
[~2021-02-18] MED LIST: ASPI-630 PO; DIGO125T3 PO; FURO-69 PO; METH10TA32 PO; METO25TA4 PO; POTA20TA4 PO; REGADENOSON 0.4 MG/5 ML DISP.SYRIN. IV ONE
--- NOTE | 2021-02-18 18:26 | RAD ---
MR#: [id number] Date of Study: 02/18/2021 Ordering Physician: SNEHAL SHIELDS, Referring Physician: NEFTALY REDDY Tech: KATHRYN Mcwilliams APPROVED REPORT Test Type: Pharmacological Stress Nurse/Tech: DANY CARR Test Indications: CHF Cardiac History: CHF, HTN- SEE EMR Medications: SEE EMR Medical History: SEE EMR Resting ECG: SR W/BBB Resting Heart Rate: 52 bpm Resting Blood Pressure: 123/58mmHg Pretest Chest Pain: No chest pain Nurse/Tech Notes S1,S2, LUNG CTA, VSS. PT DENIED CHEST PAIN OR SOA. Consent: The procedure was explained to the patient in lay terms. Informed consent was witnessed. Adam eout was entered into Mel[facility]. History and Stress Test performed by RT Giuseppe (R) (N) Pharm. Details Pharmacologic stress testing was performed using 0.4mg per 5ml of regadenoson given intravenously ove r 7-10 seconds. Stress Symptoms PT HAD A BRIEF EPISODE OF SOA, SUBSIDED QUICKLY. VITALS REMAINED STABLE. PT DENIED CHEST PAIN. POST EXERCISE Reason for Termination: Infusion complete Max HR: 109 bpm Max Blood Pressure: 119/61mmHg Blood Pressure response to exercise: Normal blood pressure response during stress. Heart Rate response to exercise: WNL Chest Pain: No. Arrhythmia: . NO SIGNIFICANT CHAGES NOTED FROM BASELINE EKG INTERPRETATION Stress EKG Conclusion: No evidence of stress-induced EKG changes. Imaging Protocol IMAGE PROTOCOL: Rest Tc-99m/stress Tc-99m 1 day Rest: Stress: Viability: Radiopharm.Tc99m PmylgktatHx52n Sestamibi Cykj50jFy 32mCi Duration 15min. 13min. Img Date 02/18/2021 02/18/2021 Inj-Img [id number]. 60min. Rest Admin Site:IV - Right AntecubitalAdministrator:KATHRYN Mcwilliams Stress Admin Site: IV - Right AntecubitalAdministrator: RT Giuseppe (R)(N) STRESS DATA End Diast. Vol.70.0mlLVEDV index BSA42.0ml End Syst. Vol.18.0mlLVESV index BSA11.0ml Myocardial Lfkm406.0gEject. Cgaqwijr84.0% Stress Scores Regional WT0.00Summed WT4.00 Regional WM0.00Summed WM2.00 The rest and stress images show normal perfusion, normal contraction and thickening. LV Perf. Quant 17 Seg. SSS2.00 17 Seg. SRS2.00 17 Seg. SDS0.00 Stress Defect Extent (% LAD)1.90Rest Defect Extent (% LAD)2.50Rev. Defect Extent (% LAD)1.30 Stress Defect Extent (% LCX) 2.50Rest Defect Extent (% LCX)0.00Rev. Defect Extent (% LCX)2.50 Stress Defect Extent (% RCA)0.00Rest Defect Extent (% RCA)0.00Rev. Defect Extent (% RCA)0.00 Stress Defect Extent (% BRUCE)2.20Rest Defect Extent (% BRUCE)3.50Rev. Defect Extent (% BRUCE)2.00 Other Information Quality:Average Risk Assessment: Low Risk Conclusion 1. No evidence of EKG changes with stress testing. 2. Normal perfusion at stress/rest. 3. Low risk study. 4. EF > 60%. Signed by : Janusz To, Electronically Approved : 02/18/2021 18:26:10
== END ==
LOC: NM 08:54
PROVIDERS: ATTEND Internal Medicine Cardiovascular Disease
DX: I50.32 Chronic diastolic (congestive) heart failure (principal)
CPT/HCPCS: 78452; 93017; A9500; J2785

== ENCOUNTER → 2021-04-01 | Outpatient (CLI) | payer OTHER ==
[~2021-04-01] MED LIST changes: -REGADENOSON 0.4 MG/5 ML DISP.SYRIN. IV ONE
--- NOTE | 2021-04-01 16:23 | RAD ---
Digital Mammogram bilateral, 2-D History: Routine screening Technique: 2-D digital CC and MLO views were obtained. CAD - computer aided detection was utilize d. Comparison: Mammograms from 12/24/2015. Findings: Breast Tissue Density B : There are scattered areas of fibroglandular density There are no suspicious masses, malignant appearing calcifications, or areas of architectural distort ion. Impression: No evidence of malignancy. Assessment: BI-RADS Category 1: Negative. Recommendation: Routine screening mammograms The patient will receive a letter with the results in the mail. Patient information will be entered i nto the mammography reminder system with a target recall date for the next mammogram. A reminder padmini er will be generated. Electronically signed by: Therese Sweet MD (04/01/2021 4:21 PM) [id number]
== END ==
LOC: MAMMO 10:45
PROVIDERS: ATTEND Family Medicine
DX: Z12.31 Encounter for screening mammogram for malignant neoplasm of breast (principal)
CPT/HCPCS: 77067